=== PATIENT | male | born 1985 | race Caucasian/White ===

== ENCOUNTER 2021-09-03 07:51 | Inpatient (IN) | payer OTHER ==
[2021-09-03] MEDS ORDERED: ACETAMINOPHEN 1000 MG/100 ML BAG IVPB ONE (08:42)
[2021-09-03] MEDS ORDERED: LACTATED RINGERS SOLUTION 1000 ML INFUS.BAG IV ONE (08:43)
[2021-09-03] MEDS ORDERED: ACETAMINOPHEN INJECTION 100 ML IVPB ONE (08:48)
[2021-09-03] MEDS ORDERED: FUROSEMIDE 40 MG/4 ML INJECTABLE VIAL IVPUSH ONE (09:50)
[2021-09-03] MEDS ORDERED: FUROSEMIDE 40 MG/4 ML INJECTABLE VIAL ONE (10:10)
[2021-09-03 10:23] LABS: BASO % 0.6 % (0-2.0); EOS % 0.4 % (0-4.5); HEMATOCRIT 48.3 % (35.4-49); HEMOGLOBIN 16.4 GM/dL (11.7-16.9); LYMPH % 22.6 % (8-40); MCH 29.5 pg (25.7-33.7); MEAN CELL VOLUME 86.7 fl (80-96); MEAN PLT VOLUME 8.6 fl (7.5-11.1); MONO % 6.9 % (3.8-10.2); NEUT % 69.5 % (42.8-82.8); PLATELET COUNT 440 10^3/uL (134-434); RBC 5.56 M/mm3 (4.00-5.60); RDW 13.9 % (11.9-15.9); WHITE BLOOD COUNT 10.1 K/mm3 (4.0-10.0)
[2021-09-03 10:34] LABS: EPI CELLS 15 /uL (0-25.1); HYALINE CASTS 6 /uL (0-3.1); PH,URINE 6.5 (5.0-8.0); URINE APPEARANCE CLEAR; URINE BACTERIA 3 /uL (0-1359); URINE BILIRUBIN NEGATIVE (NEGATIVE); URINE COLOR DK YELLOW; URINE GLUCOSE (UA) NEGATIVE (NEGATIVE); URINE KETONE TRACE (NEGATIVE); URINE LEUK ESTERASE NEGATIVE (NEGATIVE); URINE NITRITE NEGATIVE (NEGATIVE); URINE PROTEIN 3+ (NEGATIVE); URINE RBC 18 /uL (0-23.9); URINE WBC 8 /uL (0-25.8)
[2021-09-03 10:35] LABS: ALBUMIN 3.8 g/dl (3.4-5.0); BLOOD UREA NITROGEN 10.8 mg/dL (7-18); CALCIUM 9.3 mg/dL (8.5-10.1)
[2021-09-03 10:38] LABS: CREATININE 1.3 mg/dL (0.55-1.3)
[2021-09-03 10:40] LABS: ACTIVATED PTT 32.3 SECONDS (25.2-36.5); BILIRUBIN,TOTAL 1.3 mg/dL (0.2-1); TOT PROT 6.9 g/dl (6.4-8.2)
[2021-09-03 10:43] LABS: N-TERMINAL BNP 1890.7 pg/ml (5-125)
[2021-09-03 10:52] LABS: VENOUS BASE EXCESS -2.8 mmol/L (-2-2); VENOUS O2 SATURATION 68.9 % (70-80); VENOUS PCO2 38.3 mmHg (38-52); VENOUS PH 7.375 (7.310-7.410)
[2021-09-03] MEDS ORDERED: LABETALOL HCL 5 MG/1 ML (100MG/20 ML VIAL) IVPUSH ONE (11:41)
[2021-09-03 11:49] LABS: INR 1.11 (0.83-1.09); PROTHROMBIN TIME (PATIENT) 12.8 SEC (9.7-13.0)
[2021-09-03] MEDS ORDERED: LABETALOL HCL 5 MG/1 ML (200MG/40ML VIAL) IVPB ONE (12:06)
[2021-09-03 12:31] LABS: CREATININE, URINE RANDOM > 300.0 mg/dL (30-150)
[2021-09-03 13:03] LABS: COCAINE, UR NEGATIVE (NEGATIVE); METHADONE, UR NEGATIVE (NEGATIVE); OPIATES, URI NEGATIVE (NEGATIVE); PHENCYCLIDINE,URINE NEGATIVE (NEGATIVE); URINE BARBITURATES NEGATIVE (NEGATIVE); URINE BENZODIAZEPINES NEGATIVE (NEGATIVE)
[2021-09-03 13:11] LABS: URINE AMPHETAMINES NEGATIVE (NEGATIVE)
[2021-09-03] MEDS: FUROSEMIDE 40 MG/4 ML INJECTABLE VIAL IVPUSH SCH (17:27)
[2021-09-03] MEDS: HEPARIN NA (PORCINE) 5,000 UNITS/ML 1ML VIAL SQ SCH ×2 (17:28→22:38)
[2021-09-03] MEDS: SACUBITRIL/VALSARTAN 24 MG-26 MG TABLET PO SCH ×2 (17:28→22:38)
[2021-09-03] MEDS: metoPROLOL SUCCINATE 25 MG TAB.SR.24H (FP) PO SCH (17:28)
[2021-09-03 20:57] LABS: BASO % 0.6 % (0-2.0); EOS % 0.6 % (0-4.5); HEMATOCRIT 47.1 % (35.4-49); HEMOGLOBIN 16.1 GM/dL (11.7-16.9); LYMPH % 21.8 % (8-40); MCH 29.7 pg (25.7-33.7); MCHC 34.2 g/dl (32.0-35.9); MEAN CELL VOLUME 86.6 fl (80-96); MEAN PLT VOLUME 8.4 fl (7.5-11.1); MONO % 7.9 % (3.8-10.2); NEUT % 69.1 % (42.8-82.8); PLATELET COUNT 442 10^3/uL (134-434); RBC 5.43 M/mm3 (4.00-5.60); RDW 14.1 % (11.9-15.9); WHITE BLOOD COUNT 11.6 K/mm3 (4.0-10.0)
[2021-09-03 23:13] LABS: BLOOD UREA NITROGEN 13.4 mg/dL (7-18); GLUCOSE,RANDOM 107 mg/dL (74-106)
[2021-09-03 23:14] LABS: ALBUMIN 3.8 g/dl (3.4-5.0); CALCIUM 9.1 mg/dL (8.5-10.1); CHLORIDE 106 mmol/L (98-107); CO2 30 mmol/L (21-32); CREATININE 1.5 mg/dL (0.55-1.3); SODIUM 142 mmol/L (136-145); TOT PROT 6.9 g/dl (6.4-8.2)
[2021-09-03 23:15] LABS: ALK PHOS 116 U/L (45-117); BILIRUBIN,TOTAL 1.1 mg/dL (0.2-1); SGOT/AST 111 U/L (15-37); SGPT/ALT 153 U/L (13-61)
[2021-09-04] MEDS: HEPARIN NA (PORCINE) 5,000 UNITS/ML 1ML VIAL SQ SCH ×3 (06:40→21:18)
[2021-09-04 07:14] VITALS: BMI 29.2
[2021-09-04 07:37] LABS: BASO % 0.7 % (0-2.0); EOS % 1.2 % (0-4.5); HEMATOCRIT 45.1 % (35.4-49); LYMPH % 29.5 % (8-40); MCH 30.4 pg (25.7-33.7); MCHC 35.4 g/dl (32.0-35.9); MEAN CELL VOLUME 85.9 fl (80-96); MEAN PLT VOLUME 8.5 fl (7.5-11.1); MONO % 8.8 % (3.8-10.2); NEUT % 59.8 % (42.8-82.8); PLATELET COUNT 378 10^3/uL (134-434); RBC 5.25 M/mm3 (4.00-5.60); RDW 13.9 % (11.9-15.9); WHITE BLOOD COUNT 8.4 K/mm3 (4.0-10.0)
[2021-09-04 07:44] LABS: CALCIUM 9.3 mg/dL (8.5-10.1)
[2021-09-04 07:45] LABS: ALBUMIN 3.5 g/dl (3.4-5.0); BLOOD UREA NITROGEN 12.6 mg/dL (7-18); MAGNESIUM 2.4 mg/dL (1.8-2.4)
[2021-09-04 07:48] LABS: CREATININE 1.3 mg/dL (0.55-1.3); PHOSPHOROUS 3.9 mg/dL (2.5-4.9)
[2021-09-04 07:49] LABS: TOT PROT 6.3 g/dl (6.4-8.2)
[2021-09-04 07:50] LABS: BILIRUBIN,TOTAL 1.2 mg/dL (0.2-1)
[2021-09-04 07:55] LABS: INR 1.14 (0.83-1.09); PROTHROMBIN TIME (PATIENT) 13.1 SEC (9.7-13.0)
[2021-09-04] MEDS: metoPROLOL SUCCINATE 25 MG TAB.SR.24H (FP) PO SCH (10:00)
[2021-09-04] MEDS ORDERED: LOSARTAN POTASSIUM 50 MG TABLET PO SCH (10:00)
[2021-09-04] MEDS: SACUBITRIL/VALSARTAN 24 MG-26 MG TABLET PO SCH ×2 (10:00→21:18)
[2021-09-04] MEDS: FUROSEMIDE 40 MG/4 ML INJECTABLE VIAL IVPUSH SCH (10:00)
[2021-09-04 13:30] LABS: HIV INTERPRETATION NEGATIVE (NEGATIVE)
[2021-09-04] MEDS: SPIRONOLACTONE 25 MG TABLET PO SCH (13:58)
[2021-09-04] MEDS ORDERED: guaiFENesin 200 MG/10 ML 10 ML UNIT-DOSE CUPS PO ONE (21:29)
[2021-09-05] MEDS: HEPARIN NA (PORCINE) 5,000 UNITS/ML 1ML VIAL SQ SCH ×4 (07:08→21:46)
[2021-09-05 08:02] LABS: BASO % 0.5 % (0-2.0); EOS % 2.1 % (0-4.5); HEMATOCRIT 48.3 % (35.4-49); HEMOGLOBIN 16.6 GM/dL (11.7-16.9); LYMPH % 32.9 % (8-40); MCH 29.7 pg (25.7-33.7); MCHC 34.4 g/dl (32.0-35.9); MEAN CELL VOLUME 86.4 fl (80-96); MEAN PLT VOLUME 8.7 fl (7.5-11.1); NEUT % 54.5 % (42.8-82.8); PLATELET COUNT 406 10^3/uL (134-434); RBC 5.59 M/mm3 (4.00-5.60); RDW 14.2 % (11.9-15.9); WHITE BLOOD COUNT 7.9 K/mm3 (4.0-10.0)
[2021-09-05 08:21] LABS: CALCIUM 9.1 mg/dL (8.5-10.1)
[2021-09-05 08:22] LABS: ALBUMIN 3.4 g/dl (3.4-5.0); BLOOD UREA NITROGEN 17.3 mg/dL (7-18); MAGNESIUM 2.2 mg/dL (1.8-2.4)
[2021-09-05 08:25] LABS: CREATININE 1.3 mg/dL (0.55-1.3); PHOSPHOROUS 4.2 mg/dL (2.5-4.9)
[2021-09-05 08:26] LABS: BILIRUBIN,TOTAL 0.9 mg/dL (0.2-1); TOT PROT 6.3 g/dl (6.4-8.2)
[2021-09-05] MEDS: SPIRONOLACTONE 25 MG TABLET PO SCH (10:10)
[2021-09-05] MEDS: SACUBITRIL/VALSARTAN 24 MG-26 MG TABLET PO SCH ×2 (10:10→21:43)
[2021-09-05] MEDS: FUROSEMIDE 40 MG/4 ML INJECTABLE VIAL IVPUSH SCH (10:11)
[2021-09-05] MEDS ORDERED: guaiFENesin 200 MG/10 ML 10 ML UNIT-DOSE CUPS PO ONE (11:41)
[2021-09-05] MEDS: CARVEDILOL 12.5 MG TABLET (FP) PO SCH ×2 (12:00→21:44)
[2021-09-06] MEDS: HEPARIN NA (PORCINE) 5,000 UNITS/ML 1ML VIAL SQ SCH ×3 (06:16→21:43)
[2021-09-06 07:21] LABS: BASO % 0.7 % (0-2.0); EOS % 2.1 % (0-4.5); HEMATOCRIT 43.5 % (35.4-49); LYMPH % 32.9 % (8-40); MCH 29.5 pg (25.7-33.7); MCHC 34.4 g/dl (32.0-35.9); MEAN CELL VOLUME 85.9 fl (80-96); MEAN PLT VOLUME 8.4 fl (7.5-11.1); NEUT % 54.3 % (42.8-82.8); PLATELET COUNT 403 10^3/uL (134-434); RBC 5.06 M/mm3 (4.00-5.60); RDW 13.7 % (11.9-15.9); WHITE BLOOD COUNT 6.8 K/mm3 (4.0-10.0)
[2021-09-06 07:44] LABS: CHLORIDE 105 mmol/L (98-107); SODIUM 140 mmol/L (136-145)
[2021-09-06 07:58] LABS: CALCIUM 9.2 mg/dL (8.5-10.1)
[2021-09-06 07:59] LABS: ANION GAP 7 MMOL/L (8-16); CO2 27 mmol/L (21-32); GLUCOSE,RANDOM 91 mg/dL (74-106); MAGNESIUM 2.5 mg/dL (1.8-2.4)
[2021-09-06 08:01] LABS: ALBUMIN 3.4 g/dl (3.4-5.0); BLOOD UREA NITROGEN 19.1 mg/dL (7-18)
[2021-09-06 08:02] LABS: CREATININE 1.3 mg/dL (0.55-1.3); PHOSPHOROUS 4.7 mg/dL (2.5-4.9); SGOT/AST 41 U/L (15-37)
[2021-09-06 08:04] LABS: BILIRUBIN,TOTAL 0.7 mg/dL (0.2-1); SGPT/ALT 82 U/L (13-61)
[2021-09-06 08:05] LABS: ALK PHOS 83 U/L (45-117)
[2021-09-06] MEDS ORDERED: guaiFENesin 200 MG/10 ML 10 ML UNIT-DOSE CUPS PO ONE (08:38)
[2021-09-06] MEDS: CARVEDILOL 12.5 MG TABLET (FP) PO SCH (09:51)
[2021-09-06] MEDS: SPIRONOLACTONE 25 MG TABLET PO SCH (09:51)
[2021-09-06] MEDS: SACUBITRIL/VALSARTAN 24 MG-26 MG TABLET PO SCH ×2 (09:51→21:44)
[2021-09-06] MEDS: FUROSEMIDE 40 MG/4 ML INJECTABLE VIAL IVPUSH SCH (09:52)
[2021-09-06 12:04] LABS: LDH 203 U/L (87-246)
[2021-09-06 12:10] LABS: COXSACKIE A16 IGM Negative titer (Neg:<1:10); COXSACKIE A24 IGM Negative titer (Neg:<1:10); COXSACKIE A7 IGG Negative titer (Neg:<1:100); COXSACKIE A7 IGM Negative titer (Neg:<1:10); COXSACKIE A9 IGM Negative titer (Neg:<1:10)
[2021-09-06 12:14] LABS: ERYTHROCYTE SEDIMENTATION RATE 5 mm/hr (0-10)
[2021-09-06] MEDS ORDERED: guaiFENesin 200 MG/10 ML 10 ML UNIT-DOSE CUPS PO PRN (15:00)
[2021-09-06 17:54] LABS: URINE APPEARANCE CLEAR; URINE BILIRUBIN NEGATIVE (NEGATIVE); URINE COLOR YELLOW; URINE GLUCOSE (UA) NEGATIVE (NEGATIVE); URINE KETONE NEGATIVE (NEGATIVE); URINE LEUK ESTERASE NEGATIVE (NEGATIVE); URINE NITRITE NEGATIVE (NEGATIVE); URINE PROTEIN NEGATIVE (NEGATIVE); URINE UROBILINOGEN 0.2 mg/dL (0.2-1.0)
[2021-09-06] MEDS: CARVEDILOL 25 MG TABLET (FP) PO SCH (21:44)
[2021-09-07] MEDS: HEPARIN NA (PORCINE) 5,000 UNITS/ML 1ML VIAL SQ SCH ×4 (05:59→21:27)
[2021-09-07 07:28] LABS: ALBUMIN 3.4 g/dl (3.4-5.0); BLOOD UREA NITROGEN 23.2 mg/dL (7-18); CALCIUM 9.1 mg/dL (8.5-10.1); MAGNESIUM 2.5 mg/dL (1.8-2.4)
[2021-09-07 07:31] LABS: CREATININE 1.4 mg/dL (0.55-1.3); PHOSPHOROUS 4.5 mg/dL (2.5-4.9)
[2021-09-07 07:33] LABS: BILIRUBIN,TOTAL 0.6 mg/dL (0.2-1); TOT PROT 5.9 g/dl (6.4-8.2)
[2021-09-07 07:50] LABS: BASO % 0.6 % (0-2.0); EOS % 1.9 % (0-4.5); HEMATOCRIT 43.9 % (35.4-49); HEMOGLOBIN 14.9 GM/dL (11.7-16.9); LYMPH % 30.6 % (8-40); MCH 29.5 pg (25.7-33.7); MCHC 33.9 g/dl (32.0-35.9); MEAN PLT VOLUME 8.6 fl (7.5-11.1); NEUT % 56.9 % (42.8-82.8); PLATELET COUNT 371 10^3/uL (134-434); RBC 5.04 M/mm3 (4.00-5.60); RDW 13.8 % (11.9-15.9)
[2021-09-07] MEDS: SACUBITRIL/VALSARTAN 24 MG-26 MG TABLET PO SCH ×2 (09:36→21:21)
[2021-09-07] MEDS: CARVEDILOL 25 MG TABLET (FP) PO SCH ×2 (09:37→21:22)
[2021-09-07] MEDS: SPIRONOLACTONE 25 MG TABLET PO SCH (09:37)
[2021-09-07] MEDS: FUROSEMIDE 20 MG TABLET (FP) PO SCH (09:37)
[2021-09-08] MEDS: HEPARIN NA (PORCINE) 5,000 UNITS/ML 1ML VIAL SQ SCH ×3 (05:48→21:43)
[2021-09-08 07:01] LABS: BASO % 0.5 % (0-2.0); EOS % 1.6 % (0-4.5); HEMATOCRIT 42.5 % (35.4-49); HEMOGLOBIN 14.8 GM/dL (11.7-16.9); LYMPH % 29.4 % (8-40); MCHC 34.7 g/dl (32.0-35.9); MEAN CELL VOLUME 86.3 fl (80-96); MEAN PLT VOLUME 8.4 fl (7.5-11.1); MONO % 8.7 % (3.8-10.2); NEUT % 59.8 % (42.8-82.8); PLATELET COUNT 367 10^3/uL (134-434); RBC 4.92 M/mm3 (4.00-5.60); RDW 13.8 % (11.9-15.9); WHITE BLOOD COUNT 6.7 K/mm3 (4.0-10.0)
[2021-09-08 07:30] LABS: ALBUMIN 3.3 g/dl (3.4-5.0); BLOOD UREA NITROGEN 22.2 mg/dL (7-18); MAGNESIUM 2.5 mg/dL (1.8-2.4)
[2021-09-08 07:33] LABS: PHOSPHOROUS 4.2 mg/dL (2.5-4.9)
[2021-09-08 07:34] LABS: CREATININE 1.4 mg/dL (0.55-1.3)
[2021-09-08 07:35] LABS: BILIRUBIN,TOTAL 0.6 mg/dL (0.2-1)
[2021-09-08] MEDS: SACUBITRIL/VALSARTAN 24 MG-26 MG TABLET PO SCH ×2 (09:44→21:42)
[2021-09-08] MEDS: FUROSEMIDE 20 MG TABLET (FP) PO SCH (09:44)
[2021-09-08] MEDS: SPIRONOLACTONE 25 MG TABLET PO SCH (09:44)
[2021-09-08] MEDS: CARVEDILOL 25 MG TABLET (FP) PO SCH ×2 (09:44→21:42)
[2021-09-09] MEDS: HEPARIN NA (PORCINE) 5,000 UNITS/ML 1ML VIAL SQ SCH ×3 (05:58→21:28)
[2021-09-09 07:18] LABS: BASO % 0.7 % (0-2.0); EOS % 1.2 % (0-4.5); HEMATOCRIT 41.8 % (35.4-49); HEMOGLOBIN 14.7 GM/dL (11.7-16.9); LYMPH % 27.7 % (8-40); MCH 30.7 pg (25.7-33.7); MCHC 35.1 g/dl (32.0-35.9); MEAN CELL VOLUME 87.3 fl (80-96); MEAN PLT VOLUME 8.4 fl (7.5-11.1); MONO % 8.4 % (3.8-10.2); PLATELET COUNT 343 10^3/uL (134-434); RBC 4.79 M/mm3 (4.00-5.60); RDW 13.9 % (11.9-15.9)
[2021-09-09 07:53] LABS: ALBUMIN 3.4 g/dl (3.4-5.0); BLOOD UREA NITROGEN 20.2 mg/dL (7-18)
[2021-09-09 07:54] LABS: CALCIUM 8.9 mg/dL (8.5-10.1); CREATININE 1.4 mg/dL (0.55-1.3); MAGNESIUM 2.4 mg/dL (1.8-2.4)
[2021-09-09 07:56] LABS: PHOSPHOROUS 4.2 mg/dL (2.5-4.9)
[2021-09-09 07:58] LABS: BILIRUBIN,TOTAL 0.6 mg/dL (0.2-1)
[2021-09-09] MEDS: SPIRONOLACTONE 25 MG TABLET PO SCH (09:59)
[2021-09-09] MEDS: CARVEDILOL 25 MG TABLET (FP) PO SCH ×2 (09:59→21:29)
[2021-09-09] MEDS: SACUBITRIL/VALSARTAN 24 MG-26 MG TABLET PO SCH ×2 (09:59→21:29)
[2021-09-09] MEDS: FUROSEMIDE 20 MG TABLET (FP) PO SCH (09:59)
[2021-09-09 12:10] LABS: ANTIGLOMERULAR BASEMENT MEN.AB 4 units (0-20)
[2021-09-09 16:12] LABS: ATYPICAL pANCA <1:20 titer (Neg:<1:20); C-ANCA <1:20 titer (Neg:<1:20)
[2021-09-10] MEDS: HEPARIN NA (PORCINE) 5,000 UNITS/ML 1ML VIAL SQ SCH ×2 (05:38→14:24)
[2021-09-10 07:31] LABS: BASO % 0.7 % (0-2.0); EOS % 1.3 % (0-4.5); HEMATOCRIT 43.1 % (35.4-49); HEMOGLOBIN 14.7 GM/dL (11.7-16.9); LYMPH % 31.3 % (8-40); MCH 29.8 pg (25.7-33.7); MEAN CELL VOLUME 87.5 fl (80-96); MEAN PLT VOLUME 8.8 fl (7.5-11.1); MONO % 8.9 % (3.8-10.2); NEUT % 57.8 % (42.8-82.8); PLATELET COUNT 368 10^3/uL (134-434); RBC 4.93 M/mm3 (4.00-5.60); WHITE BLOOD COUNT 6.6 K/mm3 (4.0-10.0)
[2021-09-10 07:32] LABS: CHLORIDE 107 mmol/L (98-107); SODIUM 140 mmol/L (136-145)
[2021-09-10 07:34] LABS: ALBUMIN 3.4 g/dl (3.4-5.0); ANION GAP 6 MMOL/L (8-16); CALCIUM 8.9 mg/dL (8.5-10.1); CO2 27 mmol/L (21-32); GLUCOSE,RANDOM 89 mg/dL (74-106); MAGNESIUM 2.5 mg/dL (1.8-2.4)
[2021-09-10 07:35] LABS: BLOOD UREA NITROGEN 24.3 mg/dL (7-18)
[2021-09-10 07:37] LABS: SGPT/ALT 65 U/L (13-61)
[2021-09-10 07:38] LABS: CREATININE 1.5 mg/dL (0.55-1.3); PHOSPHOROUS 4.7 mg/dL (2.5-4.9); SGOT/AST 19 U/L (15-37)
[2021-09-10 07:39] LABS: BILIRUBIN,TOTAL 0.7 mg/dL (0.2-1)
[2021-09-10 07:40] LABS: ALK PHOS 78 U/L (45-117)
[2021-09-10 09:17] VITALS: BP 125/82; PULSE 78; TEMP 97.8
[2021-09-10] MEDS: FUROSEMIDE 20 MG TABLET (FP) PO SCH (09:18)
[2021-09-10] MEDS: SACUBITRIL/VALSARTAN 24 MG-26 MG TABLET PO SCH (09:18)
[2021-09-10] MEDS: SPIRONOLACTONE 25 MG TABLET PO SCH (09:18)
[2021-09-10] MEDS: CARVEDILOL 25 MG TABLET (FP) PO SCH (09:18)
== END 2021-09-10 15:11 | disposition home or self-care (01) | DRG 291 ==
LOC: JER 07:51 → JERBED 11:49 → J4W 15:44
PROVIDERS: ADMIT Internal Medicine; ATTEND Internal Medicine
DX: I11.0 Hypertensive heart disease with heart failure (principal); J81.0 Acute pulmonary edema; I50.21 Acute systolic (congestive) heart failure; J96.01 Acute respiratory failure with hypoxia; I16.9 Hypertensive crisis, unspecified; N17.9 Acute kidney failure, unspecified; M62.82 Rhabdomyolysis; I16.0 Hypertensive urgency; I42.0 Dilated cardiomyopathy; R94.31 Abnormal electrocardiogram [ECG] [EKG]; R80.8 Other proteinuria; E66.9 Obesity, unspecified; Z68.29 Body mass index [BMI] 29.0-29.9, adult; R94.5 Abnormal results of liver function studies; E78.5 Hyperlipidemia, unspecified; F41.9 Anxiety disorder, unspecified; K76.1 Chronic passive congestion of liver
CPT/HCPCS: 36415; 71045-TC-FY; 71275-TC; 76775-TC; 80053; 80061; 80307; 81003; 82550; 82553; 82570; 82728; 82803; 82962; 83036; 83516; 83520; 83540; 83550; 83605; 83615; 83735; 83880; 84100; 84155; 84156; 84165; 84238; 84443; 84466; 84484; 85025; 85610; 85651; 85730; 86038; 86060; 86140; 86225; 86256; 86618; 86658; 86769; 86780; 87040; 87086; 87207; 87389; 93005; 93010; 93306-TC; 93308; 99291; C9803-CS; J1644; Q9967; U0003; U0005